=== PATIENT | female | born 1945 | race Caucasian/White ===

== ENCOUNTER 2017-10-18 11:46 | Emergency (ER) | payer MEDICARE, BC ==
[2017-10-18] MEDS ORDERED: Sodium Chloride 0.9% 1,000 ML IV SCH (12:15)
[2017-10-18] MEDS ORDERED: fentaNYL 100 MCG/2 ML SDV IVPUSH ONE (12:34)
[2017-10-18] MEDS ORDERED: Ondansetron 4 MG/2 ML SDV IVPUSH ONE (12:34)
[2017-10-18] MEDS ORDERED: diphenhydrAMINE 50 MG/ML SDV IVPUSH ONE (12:44)
[2017-10-18] MEDS ORDERED: HYDROmorphone 2 MG/ML SDV IVPUSH ONE (14:24)
--- NOTE | 2017-10-18 15:30 | CT ---
INDICATION: Mid epigastric pain. Has had anaphylaxis with IV contrast. CT ABDOMEN AND PELVIS WITHOUT CONTRAST: Spiral 1.25-mm axial sections were obtained through the chest without contrast due to history of previous anaphylaxis to contrast. Sagittal and coronal reconstructions were obtained - only comparison is a CT of the chest of 03/05/2007. At this time in the lingula, seen on axial images #6 through #14, there is an area of nodular density with an air bronchogram on its inferior portion, which could represent a focal area of pneumonia, although neoplasm cannot be entirely excluded. This abnormality was not visualized as such on the previous study of 2006. No other finding to suggest an active process in the lower lungs or pleural spaces was seen. The heart did not appear enlarged. Evidence of previous gastric bypass surgery is noted. A punctate calcification in the spleen could be on the basis of histoplasmosis, with the spleen otherwise unremarkable. The tail of the pancreas is bulbous and was not included on the previous CT examination. Likely it represents a benign appearance - variant. No definite pancreatic mass was seen. Follow-up could be obtained in 3 months for confirmation of stability as felt to be clinically necessary. The gallbladder is absent, compatible with history of its removal. The liver was normal in appearance. The appendix is absent, compatible with history of its removal. The uterus is absent compatible with history of its removal. There is mild thickening of the urinary bladder wall which could be on the basis of cystitis, but should be correlated clinically. No evidence of bowel obstruction or free air was seen. A left inguinal hernia, including only fat, was noted. No retroperitoneal mass was seen. No other hernia was noted. No mass lesions, organomegaly, or free fluid collections were identified in the abdomen or pelvis. No renal calculi or obstructive uropathy was seen. IMPRESSION: 1. Nonacute CT abdomen and pelvis. 2. Thickening of the wall of the urinary bladder is suggested - correlate clinically. 3. Post cholecystectomy. 4. Post appendectomy. 5. Post hysterectomy. 6. Post gastric bypass surgery. 7. Suggestion of a tiny fixed hiatal hernia. 8. ASD. 9. Small inguinal hernia on the left, including only fat. 10. Degenerative changes and disk disease are noted at the thoracolumbar spine. Total Exam DLP = 693.86 mGy-cm. Report was given by phone to Dr. Cooper at 1406 hours, 10/18/2017 MTDD
--- NOTE | 2017-10-19 13:31 | ER ---
DATE SEEN: 10/18/2017 HISTORY OF PRESENT ILLNESS: This 72-year-old woman presents with abdominal pain that radiates to her back. Took antacids today. No nausea, vomiting, or fever. PAST SURGICAL HISTORY: Left inguinal herniorrhaphy, gastric bypass, cholecystectomy, appendectomy, and hernia repair. The patient has severe pain. The patient is attended by her . REVIEW OF SYSTEMS: Noncontributory, other than above. No symptoms. No musculoskeletal symptoms. No history of fibromyalgia. The patient denies vomiting. She says she had a spell like this once before and severe pain. She got a shot and the pain went away. Apparently, she was seen either in [place] or a [facility] at that time. ALLERGIES: She has significant allergies to codeine and has anaphylaxis with iodinated CT contrast. PHYSICAL EXAMINATION: GENERAL: She is well dressed. She is not overweight (she apparently lost 50 pounds due to the gastric bypass). NECK: No thyromegaly or mass in the neck. HEENT: PERRLA intact. Pharynx, appropriate hydration. LUNGS: Clear without rales, rhonchi, or wheezes. HEART: S1, S2. No murmur. ABDOMEN: Soft with moderate guarding, midepigastrium, more in the right upper quadrant. Bowel sounds are present. No distention. Abdomen is otherwise soft. No heel tap, rebound. PELVIC: Not performed. LOWER EXTREMITIES: Without abnormality. No linear abnormalities. WORKING DIAGNOSIS: Abdominal pain, etiology indeterminate, with a previous gastric bypass, warrants CAT scan. CAT scan was performed without using contrast as she has anaphylaxis with this. The CAT scan demonstrated thickening in the bladder. No obstruction. Previous gastric bypass noted and no thickening in the bowel. No sign of pancreatitis. LABORATORY FINDINGS: Lactic acid is normal. Complete metabolic panel is normal with the exception of BUN slightly elevated at 20, mildly; creatinine 0.9, BUN creatinine ratio 22, suggesting mild dehydration. Total bilirubin 0.4, but AST with trifle elevation 28, not significant. Troponin less than 0.017. Urinalysis, normal with rare bacteria. Specific gravity 1.005. The latter urine was collected after the patient was flushed with a liter of fluid. ASSESSMENT: 1. Abdominal pain, etiology indeterminate. 2. Perhaps abdominal gastro-colonic spasm. The point of spasm is indeterminate. 3. No evidence for mesenteric ischemia. 4. Lactic acid is normal. 5. No neutrophilic leukocytosis. No suggestion of any disaster is present on the clinical examination or on the basis of laboratory exam. PLAN: The patient was given a dose of fentanyl. This did not seem to manage her pain. Currently, a small dose of Dilaudid was given as there was a concern about potential anaphylaxis that she had not only with codeine, but with the iodinated dye. She did not have any complications. Her pain relented to about 3 to 5/10 in intensity. She was grateful for this. She was able to go home. She is to return to doctor as needed in the next 24 to 72 hours if markedly worse. She felt her spasm or discomfort had relented. Again, the etiology for her abdominal pain is indeterminate. Not felt to have an unusual hernia that involves the omentum as the CAT scan did not demonstrate that or unusual hernia mediated by the transition or suspension of the remaining stomach bowel contents. /[id number] WENDY/MARTIL
== END 2017-10-18 15:51 | disposition home or self-care (01) ==
LOC: FB.ED 11:46
DX: R10.9 Unspecified abdominal pain (principal); Z88.5 Allergy status to narcotic agent
CPT/HCPCS: 36415; 74176; 80053; 81001; 83605; 83615; 84484; 85025; 93005; 96361; 96374; 96375; 99284; J1170; J1200; J2405; J3010; J7040

== ENCOUNTER 2017-10-20 15:22 | Inpatient (IN) | payer MEDICARE, BC ==
--- NOTE | 2017-10-20 15:40 | EDM.PDOC ---
ED HPI GENERAL MEDICAL PROBLEM - General Stated Complaint: STOMACH PAIN Time Seen by Provider: 10/20/17 18:10 Source of Information: Reports: Patient, Family History Limitations: Reports: No Limitations - History of Present Illness INITIAL COMMENTS - FREE TEXT/NARRATIVE: 72 y.o.w.f s/p gastric bypass, Total Hysterectomy, appendectomy, Cholecystectomy , came to the ED due to gen abd. pain, more so at her suprapubic area with blood in her urine. . Pt was seen for same on 10/18/2017. At that time, the CT abd, was neg. CBC and BMP were neg. the was no blood in her urine at that time. No blood in stool, no Trauma, no N/V/D or any other acute medical issues. BP 126 /73 pulse 80 RR 18 Pulse ox 100% on RA. Temp 36.7 Onset Date: 10/18/17 Onset Time: 07:00 Duration: Day(s):, Getting Worse, Intermittent Location: Reports: Abdomen Quality: Reports: Ache, Burning, Dull, Same as Previous Episode Severity: Moderate Improves with: Reports: Medication, Rest Worsens with: Reports: Movement Associated Symptoms: Reports: No Other Symptoms Lower Abdominal Pain Score (Numeric/FACES): 10 - Related Data Allergies Allergy/AdvReac Type Severity Reaction Status Date / Time codeine Allergy Vomiting Verified 10/20/17 15:42 Iodinated Contrast- Oral and Allergy Shortness Verified 10/20/17 15:42 IV Dye of Breath Home Meds: Home Meds FLUoxetine [PROzac] 40 mg PO BEDTIME 10/18/17 [History] Famotidine [Pepcid] 20 mg PO BEDTIME #40 tab 10/18/17 [Rx] Metoprolol Succinate [Toprol XL] 12.5 mg PO BEDTIME 10/18/17 [History] Simvastatin [Zocor] 20 mg PO BEDTIME 10/18/17 [History] metFORMIN [Glucophage] 500 mg PO WITHBREAKFAST 10/18/17 [History] Acetaminophen [Tylenol Extra Strength] 500 mg PO BID PRN 10/21/17 [History] Acetaminophen/Diphenhydramine [Tylenol Pm Ex-Strength Caplet] 1 tab PO BEDTIME PRN 10/21/17 [History] Aspirin [Ecotrin] 81 mg PO BEDTIME 10/21/17 [History] Hydrocodone/Acetaminophen [Hydrocodon-Acetaminophen 5-325] 1 each PO Q4H PRN [History] Past Medical History Cardiovascular History: Reports: Bypass, High Cholesterol, Hypertension, Stents 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: Endocrine/Metabolic History: Reports: Diabetes, Type II - Past Surgical History GI Surgical History: Reports: Appendectomy, Cholecystectomy Female Surgical History: Reports: Section, Hysterectomy Other Female Surgeries/Procedures: gastric bypass Social & Family History - Family History Family Medical History: Unobtainable - Tobacco Use Smoking Status *Q: Never Smoker - Caffeine Use Caffeine Use: Reports: Coffee, Soda, Tea - Recreational Drug Use Recreational Drug Use: No ED ROS GENERAL - Review of Systems Review Of Systems: See Below Constitutional: Reports: No Symptoms HEENT: Reports: No Symptoms Respiratory: Reports: No Symptoms Cardiovascular: Reports: No Symptoms Endocrine: Reports: No Symptoms GI/Abdominal: Reports: Abdominal Pain : Reports: Hematuria Musculoskeletal: Reports: No Symptoms Skin: Reports: No Symptoms Neurological: Reports: No Symptoms Psychiatric: Reports: No Symptoms Hematologic/Lymphatic: Reports: No Symptoms Immunologic: Reports: No Symptoms ED EXAM, GI/ABD - Physical Exam Exam: See Below Exam Limited By: No Limitations General Appearance: Alert, WD/WN, Moderate Distress Eyes: Bilateral: Normal Appearance Ears: Normal External Exam, Normal Canal Nose: Normal Inspection Throat/Mouth: Normal Inspection, Normal Lips Head: Atraumatic, Normocephalic Neck: Normal Inspection, Supple, Non-Tender, Full Range of Motion Respiratory/Chest: No Respiratory Distress, Lungs Clear, Normal Breath Sounds, Chest Non-Tender Cardiovascular: Normal Peripheral Pulses, Regular Rate, Rhythm, No Edema, No Gallop GI/Abdominal Exam: Normal Bowel Sounds, Tender (suprapubic) (Female) Exam: Deferred Rectal (Female) Exam: Deferred Back Exam: Normal Inspection, Full Range of Motion Extremities: Normal Inspection, Normal Range of Motion, Non-Tender, No Pedal Edema Neurological: Alert, Oriented, CN II-XII Intact, Normal Cognition, Normal Gait, No Motor/Sensory Deficits Psychiatric: Normal Affect, Normal Mood Skin Exam: Warm, Dry, Intact, Normal Color, No Rash Lymphatic: No Adenopathy Course - Vital Signs Text/Narrative:: 72 y.o.w.f s/p gastric bypass, Total Hysterectomy, appendectomy, Cholecystectomy , came to the ED due to gen abd. pain, more so at her suprapubic area with blood in her urine. . Pt was seen for same on 10/18/2017. At that time, the CT abd, was neg. CBC and BMP were neg. the was no blood in her urine at that time. No blood in stool, no Trauma, no N/V/D or any other acute medical issues. BP 126 /73 pulse 80 RR 18 Pulse ox 100% on RA. Temp 36.7 PE: WNWD W F with abd. pain and bloody urine labs: CBC and BMP neg UA pos for hematuria Imaging: CT abd. done on 10/18/2017: Thickening of the urinary bladder wall. No renal calculy or obstructive uropathy as per RAD Impression: Gross Hematuria, Abd. pain Tx: Levoquine, Toradol, Bladder irrigation, Oxybutynin for bladder spasm 6.08 pm Consultation: , Urologist, [facility]: Abx for a possible Bladder infection, admit for cont bladder irrigation, follow up in the urology clinic clinic with Dr. Hilliard, tel: [phone] for a cystoscopy. Plan: Admit to med/surge obs to Hospitalist. Last Recorded V/S: Last Vital Signs Temp 36.5 C 10/22/17 00:00 Pulse 48 L 10/22/17 00:00 Resp 16 10/22/17 00:00 BP 134/60 10/22/17 00:00 Pulse Ox 98 10/22/17 00:00 - Orders/Labs/Meds Orders: Active Orders 24 hr Category Date Time Status DC Arcos Catheter [Urinary Catheter Removal] [RC] Per Care 10/22/17 06:00 Active Unit Routine CULTURE URINE [RM] Routine Lab 10/21/17 11:38 Received FLUoxetine [PROzac] Med 10/21/17 21:00 Active 40 mg PO BEDTIME Metoprolol Succinate [Toprol XL] Med 10/21/17 21:00 Active 12.5 mg PO BEDTIME metFORMIN [Glucophage] Med 10/22/17 08:00 Active 500 mg PO WITHBREAKFAST Medication Orders Fluoxetine HCl (Prozac) 40 mg PO BEDTIME [facility] Last Admin: 10/21/17 22:05 Dose: 40 mg Levofloxacin/Dextrose 500 mg/ (Premix) 100 mls @ 100 mls/hr IV Q24H OFELIA Last Admin: 10/21/17 19:05 Dose: 100 mls/hr Infusion: 10/20/17 22:20 Dose: 100 mls/hr Admin: 10/20/17 21:20 Dose: 100 mls/hr Metformin HCl (Glucophage) 500 mg PO WITHBREAKFAST OFELIA Metoprolol Succinate (Toprol Xl) 12.5 mg PO BEDTIME [facility] Last Admin: 10/21/17 22:05 Dose: 12.5 mg Sodium Chloride (Saline Flush) 10 ml FLUSH ASDIRECTED PRN PRN Reason: Keep Vein Open Last Admin: 10/21/17 20:08 Dose: 10 ml Admin: 10/20/17 16:58 Dose: 10 ml Admin: 10/20/17 16:57 Dose: 10 ml Admin: 10/20/17 16:32 Dose: 10 ml Labs: Laboratory Tests 10/20/17 10/20/17 10/20/17 Range/Units 15:45 16:10 16:10 WBC 8.0 (4.5-12.0) X10-3/uL RBC 3.99 (3.23-5.20) x10(6)uL Hgb 12.1 (11.5-15.5) g/dL Hct 36.6 (30.0-51.3) % MCV 91.7 (80-96) fL MCH 30.3 (27.7-33.6) pg MCHC 33.0 (32.2-35.4) g/dL RDW 13.2 (11.5-15.5) % Plt Count 258 (125-369) X10(3)uL MPV 8.2 (7.4-10.4) fL Neut % (Auto) 59.1 (46-82) % Lymph % (Auto) 30.1 (13-37) % [place] % (Auto) 7.0 (4-12) % Eos % (Auto) 3 (1.0-5.0) % Baso % (Auto) 1 (0-2) % Neut # (Auto) 4.7 (1.6-8.3) # Lymph # (Auto) 2.4 (0.6-5.0) # [place] # (Auto) 0.6 (0.0-1.3) # Eos # (Auto) 0.2 (0.0-0.8) # Baso # (Auto) 0.1 (0.0-0.2) # PT 9.9 (8.7-11.1) INR 0.98 (0.89-1.13) Sodium (135-145) mmol/L Potassium (3.5-5.3) mmol/L Chloride (100-110) mmol/L Carbon Dioxide (21-32) mmol/L BUN (7-18) mg/dL Creatinine (0.55-1.02) mg/dL Est Cr Clr Drug Dosing mL/min Estimated GFR (MDRD) (>60) BUN/Creatinine Ratio (9-20) Glucose (80-116) mg/dL Calcium (8.6-10.2) mg/dL Urine Color Red (YELLOW) Urine Appearance Turbid (CLEAR) Urine pH 6.5 (5.0-6.5) Ur Specific [place] 1.015 (1.010-1.025) Urine Protein 30 H (NEGATIVE) mg/dL Urine Glucose (UA) Normal (NEGATIVE) mg/dL Urine Ketones Negative (NEGATIVE) mg/dL Urine Occult Blood Large H (NEGATIVE) Urine Nitrite Negative (NEGATIVE) Urine Bilirubin Negative (NEGATIVE) Urine Urobilinogen Normal (NEGATIVE) mg/dL Ur Leukocyte Esterase Negative (NEGATIVE) Urine RBC Packed H (0) //18 Range/Units 16:10 WBC (4.5-12.0) X10-3/uL RBC (3.23-5.20) x10(6)uL Hgb (11.5-15.5) g/dL Hct (30.0-51.3) % MCV (80-96) fL MCH (27.7-33.6) pg MCHC (32.2-35.4) g/dL RDW (11.5-15.5) % Plt Count (125-369) X10(3)uL MPV (7.4-10.4) fL Neut % (Auto) (46-82) % Lymph % (Auto) (13-37) % [place] % (Auto) (4-12) % Eos % (Auto) (1.0-5.0) % Baso % (Auto) (0-2) % Neut # (Auto) (1.6-8.3) # Lymph # (Auto) (0.6-5.0) # [place] # (Auto) (0.0-1.3) # Eos # (Auto) (0.0-0.8) # Baso # (Auto) (0.0-0.2) # PT (8.7-11.1) INR (0.89-1.13) Sodium 139 (135-145) mmol/L Potassium 4.0 (3.5-5.3) mmol/L Chloride 104 (100-110) mmol/L Carbon Dioxide 25 (21-32) mmol/L BUN 20 H (7-18) mg/dL Creatinine 0.9 (0.55-1.02) mg/dL Est Cr Clr Drug Dosing 40.58 mL/min Estimated GFR (MDRD) > 60 (>60) BUN/Creatinine Ratio 22.2 H (9-20) Glucose 107 (80-116) mg/dL Calcium 8.8 (8.6-10.2) mg/dL Urine Color (YELLOW) Urine Appearance (CLEAR) Urine pH (5.0-6.5) Ur Specific [place] (1.010-1.025) Urine Protein (NEGATIVE) mg/dL Urine Glucose (UA) (NEGATIVE) mg/dL Urine Ketones (NEGATIVE) mg/dL Urine Occult Blood (NEGATIVE) Urine Nitrite (NEGATIVE) Urine Bilirubin (NEGATIVE) Urine Urobilinogen (NEGATIVE) mg/dL Ur Leukocyte Esterase (NEGATIVE) Urine RBC (0) Meds: Medications Generic Name Dose Route Start Last Admin Trade Name Benitoq PRN Reason Stop Dose Admin Fluoxetine HCl 40 mg 10/21/17 21:00 10/21/17 22:05 Prozac PO 40 mg BEDTIME OFELIA Administration Levofloxacin/Dextrose 500 mg/ 100 mls @ 100 mls/hr 10/20/17 18:30 10/21/17 19 :05 Premix IV 100 mls/hr Q24H OFELIA Administration Metformin HCl 500 mg 10/22/17 08:00 Glucophage PO WITHBREAKFAST OFELIA Metoprolol Succinate 12.5 mg 10/21/17 21:00 10/21/17 22:05 Toprol Xl PO 12.5 mg BEDTIME OFELIA Administration Sodium Chloride 10 ml 10/20/17 16:31 04/23/18 20:08 Saline Flush FLUSH 10 ml ASDIRECTED PRN Administration Keep Vein Open Discontinued Medications Generic Name Dose Route Start Last Admin Trade Name Shefali PRN Reason Stop Dose Admin Diphenhydramine HCl 50 mg 10/21/17 00:21 10/21/17 00:58 Benadryl PO 10/21/17 00:22 50 mg ONETIME ONE Administration Levofloxacin/Dextrose Confirm 10/20/17 21:07 10/20/17 22:14 Levaquin In D5w 500 Mg/100 Ml Administered 10/20/17 21:08 Not Given Dose 100 mls @ as directed IV .STK-MED ONE Ketorolac Tromethamine 30 mg 10/20/17 16:14 10/20/17 16:37 Toradol IVPUSH 10/20/17 16:15 30 mg ONETIME ONE Administration Ketorolac Tromethamine 30 mg 10/20/17 21:13 10/20/17 21:37 Toradol IVPUSH 10/20/17 21:14 30 mg ONETIME ONE Administration Ondansetron HCl 8 mg 10/20/17 15:53 10/20/17 16:51 Zofran IVPUSH 10/20/17 15:54 8 mg ONETIME ONE Administration Oxybutynin Chloride 5 mg 10/20/17 21:19 10/20/17 21:37 Oxybutynin Er PO 10/20/17 21:20 5 mg ONETIME ONE Administration Pantoprazole Sodium 40 mg 10/20/17 15:53 10/20/17 16:45 Protonix Iv IVPUSH 10/20/17 15:54 40 mg ONETIME ONE Administration Departure - Departure Time of Disposition: 18:00 Disposition: Refer to Observation Condition: Fair Clinical Impression: UTI (urinary tract infection) Qualifiers: Urinary tract infection type: acute cystitis - Discharge Information
[2017-10-20] MEDS ORDERED: Pantoprazole 40 MG Vial IVPUSH ONE (15:53)
[2017-10-20] MEDS ORDERED: Ondansetron 4 MG/2 ML SDV IVPUSH ONE (15:53)
[2017-10-20] MEDS ORDERED: Ketorolac 30 MG/ML SDV IVPUSH ONE ×2 (16:14→21:13)
[2017-10-20] MEDS: Sodium Chloride 0.9% 10 ML Syringe FLUSH PRN ×3 (16:32→16:58)
[2017-10-20] MEDS ORDERED: Levofloxacin/Dextrose 5%-Water 100 ML IV ONE (21:07)
[2017-10-20] MEDS ORDERED: Oxybutynin 5 MG Tab.ER PO ONE (21:19)
[2017-10-20] MEDS: Levofloxacin/Dextrose 5%-Water 500 MG in Premix Bag 1 BAG IV SCH (21:20)
[2017-10-21] MEDS ORDERED: diphenhydrAMINE 50 MG Cap PO ONE (00:21)
--- NOTE | 2017-10-21 12:12 | PCM.HP ---
H&P History of Present Illness - General Date of Service: 10/21/17 Admit Problem/Dx: Admission Diagnosis/Problem Admission Diagnosis/Problem Gross hematuria Source of Information: Patient, Family, Old Records, Provider History Limitations: Reports: No Limitations - History of Present Illness Initial Comments - Free Text/Narative: Patient is a 72-year-old female who is otherwise in good health until Saturday the when she developed epigastric abdominal pain radiating to the back around both sides and presented to the emergency department. The pain was fairly severe. She had an extensive workup including blood work, abdominal CT, and negative UA. She was placed on Pepcid and hydrocodone and discharged home. She had no other systemic symptoms. No fevers, no chills, no nausea, no vomiting, no diarrhea. She had no blood in her urine. No blood in her stool. No other symptoms of illness. The pain was a sharp achiness in the epigastrium which radiated around the sides of the abdomen to the back. The pain pills helped a little but did not last and she was concerned about their safety so she quit taking them. She felt better on Saturday but by Saturday, yesterday, she started to have spasms and the pain moved into the lower abdomen and continued to radiate into the back. She was more crampy in the pain although no bowel or bladder changes other than a little bit more frequency. In the afternoon she started to urinate. Blood and so presented to the emergency department for further evaluation. At that time she was found to have gross hematuria with an otherwise negative urine and so was advised to be admitted for further treatment and evaluation. The patient has had one other episode similar to this back in 2017 when she and her were in [place]. She had the exact same symptoms without the gross hematuria, presented to the emergency room in [place], had a significant workup including CT imaging which was negative. The pain subsided within a few hours and she never had any recurrence until now. She's otherwise been feeling well except for she's noticed over the past couple of months that when she eats she has early satiety compared to previous and she also has some epigastric pain when she is finished with her meal. It has been mild and fairly short-lived so she hasn't investigated it further. She did not follow up with her gastric bypass annual visit for almost 2 years. Prior to that was seen annually. Past medical history: #1Status post Abundio-en-Y gastric bypass in 2011 #2 hypertension #3 hyperlipidemia #4 coronary artery disease -patient denies history of MS. She apparently had a stent placed 2006 or so and then had bypass surgery in 2008. Patient states one vessel but chart shows 3 vessels. #5 metabolic syndrome #6 generalized anxiety disorder #7 past surgeries of gastric bypass, sections 2, hysterectomy 1992, appendectomy 1965, coronary artery bypass grafting 2008, tonsillectomy and tubal ligation. 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 She is and lives with her in [place]. No illegal drug use. She has 4 grown children all sons. Family history: The patient's mother of breast cancer at 57. The patient's father of brain tumor at 71. The patient has a twin sister with recently diagnosed stage I breast cancer, another sister who is healthy, and a brother who has coronary disease and diabetes type 2. She has another brother who from a car accident and another sibling who at the age of 4 from aplastic anemia, also a brother. Lower Abdominal Pain Score (Numeric/FACES): 10 - Related Data Allergies/Adverse Reactions: Allergies Allergy/AdvReac Type Severity Reaction Status Date / Time codeine Allergy Vomiting Verified 10/20/17 15:42 Iodinated Contrast- Oral and Allergy Shortness Verified 10/20/17 15:42 IV Dye of Breath Home Medications: Home Meds FLUoxetine [PROzac] 40 mg PO BEDTIME 10/18/17 [History] Famotidine [Pepcid] 20 mg PO BEDTIME #40 tab 10/18/17 [Rx] Metoprolol Succinate [Toprol XL] 12.5 mg PO BEDTIME 10/18/17 [History] Simvastatin [Zocor] 20 mg PO BEDTIME 10/18/17 [History] metFORMIN [Glucophage] 500 mg PO WITHBREAKFAST 10/18/17 [History] Acetaminophen [Tylenol Extra Strength] 500 mg PO BID PRN 10/21/17 [History] Acetaminophen/Diphenhydramine [Tylenol Pm Ex-Strength Caplet] 1 tab PO BEDTIME PRN 10/21/17 [History] Aspirin [Ecotrin] 81 mg PO BEDTIME 10/21/17 [History] Hydrocodone/Acetaminophen [Hydrocodon-Acetaminophen 5-325] 1 each PO Q4H PRN [History] Past Medical History Cardiovascular History: Reports: Bypass, High Cholesterol, Hypertension, Stents [employer] History: Reports: Psychiatric History: Reports: Depression Endocrine/Metabolic History: Reports: Diabetes, Type II - Infectious Disease History Infectious Disease History: Reports: Chicken Pox - Past Surgical History GI Surgical History: Reports: Appendectomy, Cholecystectomy Female Surgical History: Reports: Section, Hysterectomy Other Female Surgeries/Procedures: gastric bypass Social & Family History - Family History Family Medical History: Unobtainable - Tobacco Use Smoking Status *Q: Never Smoker Second Hand Smoke Exposure: No - Caffeine Use Caffeine Use: Reports: Coffee, Soda, Tea - Recreational Drug Use Recreational Drug Use: No H&P Review of Systems - Review of Systems: Review Of Systems: See Below General: Reports: No Symptoms HEENT: Reports: No Symptoms Pulmonary: Reports: No Symptoms Cardiovascular: Reports: No Symptoms Gastrointestinal: Reports: Abdominal Pain Genitourinary: Reports: Frequency, Hematuria Musculoskeletal: Reports: No Symptoms Skin: Reports: No Symptoms Psychiatric: Reports: No Symptoms Neurological: Reports: No Symptoms Hematologic/Lymphatic: Reports: Easy Bleeding (secondary to aspirin.) Exam - Exam Exam: See Below - Vital Signs Vital Signs: Last Vital Signs Temp 35.9 C 10/21/17 08:00 Pulse 42 L 10/21/17 08:00 Resp 20 10/21/17 08:00 BP 124/58 L 10/21/17 08:00 Pulse Ox 98 10/21/17 08:00 Weight: 65.227 kg - Exam General: Alert, Oriented, Cooperative HEENT: PERRLA, Mucosa Moist & [place], Posterior Pharynx Clear Neck: Supple Lungs: Clear to Auscultation, Normal Respiratory Effort Cardiovascular: Regular Rate, Regular Rhythm, Bradycardia GI/Abdominal Exam: Normal Bowel Sounds, Soft, Tender (in the epigastrium and left lower quadrant. No rebound, masses, rigidity or guarding. ) Back Exam: Normal Inspection Extremities: Normal Inspection, No Pedal Edema Neuro Extensive - Mental Status: Alert, Oriented x3 Psychiatric: Alert - Patient Data Lab Results Last 24 hrs: Laboratory Results - last 24 hr 10/20/17 10/20/17 10/20/17 Range/Units 15:45 16:10 16:10 WBC 8.0 (4.5-12.0) X10-3/uL RBC 3.99 (3.23-5.20) x10(6)uL Hgb 12.1 (11.5-15.5) g/dL Hct 36.6 (30.0-51.3) % MCV 91.7 (80-96) fL MCH 30.3 (27.7-33.6) pg MCHC 33.0 (32.2-35.4) g/dL RDW 13.2 (11.5-15.5) % Plt Count 258 (125-369) X10(3)uL MPV 8.2 (7.4-10.4) fL Neut % (Auto) 59.1 (46-82) % Lymph % (Auto) 30.1 (13-37) % [place] % (Auto) 7.0 (4-12) % Eos % (Auto) 3 (1.0-5.0) % Baso % (Auto) 1 (0-2) % Neut # (Auto) 4.7 (1.6-8.3) # Lymph # (Auto) 2.4 (0.6-5.0) # Addison # (Auto) 0.6 (0.0-1.3) # Eos # (Auto) 0.2 (0.0-0.8) # Baso # (Auto) 0.1 (0.0-0.2) # PT 9.9 (8.7-11.1) INR 0.98 (0.89-1.13) Sodium (135-145) mmol/L Potassium (3.5-5.3) mmol/L Chloride (100-110) mmol/L Carbon Dioxide (21-32) mmol/L BUN (7-18) mg/dL Creatinine (0.55-1.02) mg/dL Est Cr Clr Drug Dosing mL/min Estimated GFR (MDRD) (>60) BUN/Creatinine Ratio (9-20) Glucose (80-116) mg/dL Calcium (8.6-10.2) mg/dL Urine Color Red (YELLOW) Urine Appearance Turbid (CLEAR) Urine pH 6.5 (5.0-6.5) Ur Specific [place] 1.015 (1.010-1.025) Urine Protein 30 H (NEGATIVE) mg/dL Urine Glucose (UA) Normal (NEGATIVE) mg/dL Urine Ketones Negative (NEGATIVE) mg/dL Urine Occult Blood Large H (NEGATIVE) Urine Nitrite Negative (NEGATIVE) Urine Bilirubin Negative (NEGATIVE) Urine Urobilinogen Normal (NEGATIVE) mg/dL Ur Leukocyte Esterase Negative (NEGATIVE) Urine RBC Packed H (0) 10/20/ Range/Units 16:10 WBC (4.5-12.0) X10-3/uL RBC (3.23-5.20) x10(6)uL Hgb (11.5-15.5) g/dL Hct (30.0-51.3) % MCV (80-96) fL MCH (27.7-33.6) pg MCHC (32.2-35.4) g/dL RDW (11.5-15.5) % Plt Count (125-369) X10(3)uL MPV (7.4-10.4) fL Neut % (Auto) (46-82) % Lymph % (Auto) (13-37) % [place]ison % (Auto) (4-12) % Eos % (Auto) (1.0-5.0) % Baso % (Auto) (0-2) % Neut # (Auto) (1.6-8.3) # Lymph # (Auto) (0.6-5.0) # Addison # (Auto) (0.0-1.3) # Eos # (Auto) (0.0-0.8) # Baso # (Auto) (0.0-0.2) # PT (8.7-11.1) INR (0.89-1.13) Sodium 139 (135-145) mmol/L Potassium 4.0 (3.5-5.3) mmol/L Chloride 104 (100-110) mmol/L Carbon Dioxide 25 (21-32) mmol/L BUN 20 H (7-18) mg/dL Creatinine 0.9 (0.55-1.02) mg/dL Est Cr Clr Drug Dosing 40.58 mL/min Estimated GFR (MDRD) > 60 (>60) BUN/Creatinine Ratio 22.2 H (9-20) Glucose 107 (80-116) mg/dL Calcium 8.8 (8.6-10.2) mg/dL Urine Color (YELLOW) Urine Appearance (CLEAR) Urine pH (5.0-6.5) Ur Specific [place] (1.010-1.025) Urine Protein (NEGATIVE) mg/dL Urine Glucose (UA) (NEGATIVE) mg/dL Urine Ketones (NEGATIVE) mg/dL Urine Occult Blood (NEGATIVE) Urine Nitrite (NEGATIVE) Urine Bilirubin (NEGATIVE) Urine Urobilinogen (NEGATIVE) mg/dL Ur Leukocyte Esterase (NEGATIVE) Urine RBC (0) Result Diagrams: 10/20/17 16:10 10/20/17 16:10 - Problem List (1) Gross hematuria SNOMED Code(s): 721101303 ICD Code: R31.0 - GROSS HEMATURIA Status: Acute Current Visit: Yes Problem Details: Improved. D/C continuous bladder irrigation and keep garcia to see if blood is really cleared or just diluted. If no further bleeding can d/c garcia in am. Source of bleeding unclear. Negative CT but done without contrast due to allergy. Renal US ordered and we can evaluate for a renal source. U Cx ordered, possible infection although unlikely. Will need to follow up with urology for direct visualization and possible CT urogram as outpatient. Continue antibiotic therapy, but may de-escalate tomorrow based on initial UC results. (2) CAD S/P percutaneous coronary angioplasty SNOMED Code(s): 644346397 ICD Code: I25.10 - ATHSCL HEART DISEASE OF [place] CORONARY ARTERY W/O ANG PCTRS; Z98.61 - CORONARY ANGIOPLASTY STATUS Status: Acute Current Visit: Yes Problem Details: Stable, monitor. Continue home meds except ASA. (3) Generalized anxiety disorder SNOMED Code(s): 47685887 ICD Code: F41.1 - GENERALIZED ANXIETY DISORDER Status: Acute Current Visit: Yes Problem Details: Controlled. Continue outpatient meds. (4) H/O gastric bypass SNOMED Code(s): 267927858 ICD Code: Z98.84 - BARIATRIC SURGERY STATUS Status: Acute Current Visit: Yes Problem Details: Could be source of pain but not hematuria. Recommended outpatient follow up with gastric bypass surgery. (5) Hyperlipidemia SNOMED Code(s): 24303087 ICD Code: E78.5 - HYPERLIPIDEMIA, UNSPECIFIED Status: Acute Current Visit : Yes Problem Details: Statin therapy. (6) Hypertension SNOMED Code(s): 18984923 ICD Code: I10 - ESSENTIAL (PRIMARY) HYPERTENSION Status: Acute Current Visit: Yes Problem Details: Continue outpatient meds. (7) Metabolic syndrome SNOMED Code(s): 000782717 ICD Code: E88.81 - METABOLIC SYNDROME Status: Acute Current Visit: Yes Problem Details: Continue metformin. (8) DVT prophylaxis SNOMED Code(s): 843419975, 522768415 ICD Code: JRH0273 - Status: Acute Current Visit: Yes Problem Details: SCDs. Hold anticoagulants due to bleeding. Problem List Initiated/Reviewed/Updated: Yes Orders Last 24hrs: Active Orders 24 hr Category Date Time Status Patient Status Manage Transfer [TRANSFER] Routine ADT 10/21/17 11:43 Ordered Patient Status [ADT] Routine ADT 10/20/17 18:31 Active DC Garcia Catheter [Urinary Catheter Removal] [RC] Per Care 10/22/17 06:00 Active Unit Routine Insert Garcia Catheter [Insert Urinary Catheter] [OM.PC] Care 10/20/17 18:30 Ordered Q24H Oxygen Therapy [RC] PRN Care 10/20/17 18:31 Active Up With Assistance [RC] 09,13,17,21 Care 10/20/17 18:31 Active Urinary Catheter Assessment [RC] 08,16,00 Care 10/20/17 18:31 Active Vital Signs [RC] 04,08,12,16,20,00 Care 10/20/17 18:31 Active Renal Comp [US] Routine Exams 10/21/17 11:43 Ordered CULTURE URINE [RM] Routine Lab 10/21/17 11:38 Ordered UA W/MICROSCOPIC [URIN] Stat Lab 10/20/17 15:45 Ordered FLUoxetine [PROzac] Med 10/21/17 21:00 Ordered 40 mg PO BEDTIME Levofloxacin/Dextrose 5%-Water [Levaquin in D5W 500 MG/ Med 10/20/17 18:30 Active 100 ML] 500 mg Premix Bag 1 bag IV Q24H Metoprolol Succinate [Toprol XL] Med 10/21/17 21:00 Ordered 12.5 mg PO BEDTIME Sodium Chloride 0.9% [Saline Flush] Med 10/20/17 16:31 Active 10 ml FLUSH ASDIRECTED PRN metFORMIN [Glucophage] Med 10/22/17 08:00 Ordered 500 mg PO WITHBREAKFAST Saline Lock Insert [OM.PC] Routine Oth 10/20/17 16:31 Ordered Resuscitation Status Routine Resus Stat 10/20/17 18:31 Ordered Medication Orders Fluoxetine HCl (Prozac) 40 mg PO BEDTIME OF[facility] Levofloxacin/Dextrose 500 mg/ (Premix) 100 mls @ 100 mls/hr IV Q24H [facility] Last Admin: 10/20/17 21:20 Dose: 100 mls/hr Metformin HCl (Glucophage) 500 mg PO WITHBREAKFAST OF[facility]IA Metoprolol Succinate (Toprol Xl) 12.5 mg PO BEDTIME OFELIA Sodium Chloride (Saline Flush) 10 ml FLUSH ASDIRECTED PRN PRN Reason: Keep Vein Open Last Admin: 10/20/17 16:58 Dose: 10 ml Admin: 10/20/17 16:57 Dose: 10 ml Admin: 10/20/17 16:32 Dose: 10 ml Assessment/Plan Comment:: Discussed CODE STATUS with the patient and her . She is "not ready to " and if she were to get so sick that she were to she would want full resuscitation including chest compressions, electric shocks, intubation. Thus patient is a full code.
[2017-10-21] MEDS: Levofloxacin/Dextrose 5%-Water 500 MG in Premix Bag 1 BAG IV SCH (19:05)
[2017-10-21] MEDS: Sodium Chloride 0.9% 10 ML Syringe FLUSH PRN (20:08)
[2017-10-21] MEDS ORDERED: Metoprolol Succinate 25 MG Tab.ER PO SCH (21:00)
[2017-10-21] MEDS ORDERED: FLUoxetine 20 MG Cap PO SCH (21:00)
[2017-10-22] MEDS ORDERED: metFORMIN 500 MG Tab PO SCH (08:00)
--- NOTE | 2017-10-22 09:00 | CR ---
INDICATION: Gross hematuria. RENAL ULTRASOUND COMPLETE: Multiple ultrasonic images revealed the right kidney to measure 11.4 x 5.1 x 4.7 cm. Left kidney measured 11.2 x 5.2 x 4.6 cm. A mild degree of renal cortical scarring is noted bilaterally. No mass lesions, either solid or cystic were identified. No evidence of hydronephrosis is seen at the left kidney. However, there is mild pyelocaliectasis on the right, suggesting a possible obstructive uropathy on the right - correlate clinically. No renal calculi were seen. Detail is somewhat limited with patient's body habitus and intestinal gas. Arcos catheter was noted in the urinary bladder. The bladder wall appears to be slightly thickened, raising question of cystitis. It had a double wall appearance, suggesting edema. IMPRESSION: 1. Mild renal cortical scarring bilaterally. 2. Question of normal variant versus mild obstructive uropathy right kidney. 3. Thickening of urinary bladder wall could be on the basis of cystitis - correlate clinically. [facility]
--- NOTE | 2017-10-22 10:43 | PCM.DCSUM1 ---
Discharge Summary - Hospital Course Free Text/Narrative:: Date of admission: 10/20/17 Date of discharg 10/22/17 Admission diagnosis: Gross hematuria, rule out urinary tract infection. Discharge diagnosis: UTI with gram-negative rods, gross hematuria, now resolved. Consults: Urology by phone from the ER. Procedures: -Renal US which showed mild renal cortical cyst scarring bilaterally, question of normal variant versus mild obstructive uropathy right kidney, thickening of the urinary bladder wall possibly on the basis of cystitis. -3-way bladder catheter irrigation for hematuria. -CT scan of the abdomen and pelvis done on first ER visit on 10/18/[address] abdomen and pelvis, possible thickening of the wall of the urinary bladder, post cholecystectomy, post appendectomy, post hysterectomy, post gastric bypass surgery, suggestion of a tiny fixed hiatal hernia, AST, small inguinal hernia on the left, including only fat, degenerative changes and disc disease noted at the thoracic or lumbar spine. HPI: Patient is a 72-year-old female who is otherwise in good health until Saturday the when she developed epigastric abdominal pain radiating to the back around both sides and presented to the emergency department. The pain was fairly severe. She had an extensive workup including blood work, abdominal CT, and negative UA. She was placed on Pepcid and hydrocodone and discharged home. She had no other systemic symptoms. No fevers, no chills, no nausea, no vomiting, no diarrhea. She had no blood in her urine. No blood in her stool. No other symptoms of illness. The pain was a sharp achiness in the epigastrium which radiated around the sides of the abdomen to the back. The pain pills helped a little but did not last and she was concerned about their safety so she quit taking them. She felt better on Saturday but by Saturday, the , she started to have spasms and the pain moved into the lower abdomen and continued to radiate into the back. She was more crampy in the pain although no bowel or bladder changes other than a little bit more frequency. In the afternoon she started to urinate blood and so presented to the emergency department for further evaluation. At that time she was found to have gross hematuria with an otherwise negative urine and so was advised to be admitted for further treatment and evaluation. Hospital Course: Patient with started on continuous bladder irrigation. Within 24 hours her bleeding had stopped. Irrigation was stopped and the Arcos catheter left in place for another 12 hours with no further evidence of blood. Removed on the day of discharge and patient was able to void prior to leaving. Also on the day of discharge the patient's urine culture came back positive for gram-negative rods, no ID or sensitivities available yet. Patient was discharged home on ciprofloxacin. Discharge instructions: Discharge home today on ciprofloxacin for another 5 days 250 mg twice daily. Follow-up with your primary care provider within the next week to 10 days. Follow-up with urology within the next 2 weeks. You will need a scoping in your bladder to rule out any kind of bladder cancer. You may return to regular diet and regular activities. - Discharge Data Discharge Date: 10/22/17 Discharge Disposition: Home, Self-Care 01 Condition: Good - Discharge Diagnosis/Problem(s) (1) Gross hematuria SNOMED Code(s): 741198257 ICD Code: R31.0 - GROSS HEMATURIA Status: Acute Current Visit: Yes Problem Details: Completely resolved. Urine cx just came back positive for gram negative rods. Renal US prelim was normal. Needs to follow up with urology in the next 2 weeks for cystoscopy. Will do full 7 days of antibiotic therapy but de-escalate. Cipro 250 mg po BID for total of 7 days. (2) CAD S/P percutaneous coronary angioplasty SNOMED Code(s): 310341402 ICD Code: I25.10 - ATHSCL HEART DISEASE OF [place] CORONARY ARTERY W/O ANG PCTRS; Z98.61 - CORONARY ANGIOPLASTY STATUS Status: Acute Current Visit: Yes Problem Details: Stable, monitor. Continue home meds except ASA. (3) Generalized anxiety disorder SNOMED Code(s): 48983105 ICD Code: F41.1 - GENERALIZED ANXIETY DISORDER Status: Acute Current Visit: Yes Problem Details: Controlled. Continue outpatient meds. (4) H/O gastric bypass SNOMED Code(s): 799935482 ICD Code: Z98.84 - BARIATRIC SURGERY STATUS Status: Acute Current Visit: Yes Problem Details: Recommended outpatient follow up with gastric bypass surgery. (5) Hyperlipidemia SNOMED Code(s): 56588913 ICD Code: E78.5 - HYPERLIPIDEMIA, UNSPECIFIED Status: Acute Current Visit : Yes Problem Details: Statin therapy. (6) Hypertension SNOMED Code(s): 07916726 ICD Code: I10 - ESSENTIAL (PRIMARY) HYPERTENSION Status: Acute Current Visit: Yes Problem Details: Continue outpatient meds. (7) Metabolic syndrome SNOMED Code(s): 976924071 ICD Code: E88.81 - METABOLIC SYNDROME Status: Acute Current Visit: Yes Problem Details: Continue metformin. (8) DVT prophylaxis SNOMED Code(s): 646821561, 807626208 ICD Code: UAL2619 - Status: Acute Current Visit: Yes Problem Details: SCDs. Hold anticoagulants due to bleeding. - Discharge Plan Prescriptions/Med Rec: Ciprofloxacin HCl [Cipro] 250 mg PO BID 5 Days #10 tablet Home Medications: Home Meds FLUoxetine [PROzac] 40 mg PO BEDTIME 10/18/17 [History] Metoprolol Succinate [Toprol XL] 12.5 mg PO BEDTIME 10/18/17 [History] Simvastatin [Zocor] 20 mg PO BEDTIME 10/18/17 [History] Acetaminophen [Tylenol Extra Strength] 500 mg PO BID PRN 10/21/17 [History] Aspirin [Ecotrin] 81 mg PO BEDTIME 10/21/17 [History] Ciprofloxacin HCl [Cipro] 250 mg PO BID 5 Days #10 tablet 10/22/17 [Rx] metFORMIN [Glucophage] 1,000 mg PO WITHBREAKFAST #60 10/22/17 [Rx] Forms: ED Department Discharge Referrals: Stephie Thompson, [facility] [Primary Care Provider] - - General Info Date of Service: 10/22/17 Subjective Update: On the day of discharge, patient was feeling very well. Pain is completely resolved. She was walking in the halls. No chest pain or shortness of breath, no nausea or vomiting. No diarrhea from antibiotics. - Patient Data Vitals - Most Recent: Last Vital Signs Temp 36.5 C 10/22/17 00:00 Pulse 48 L 10/22/17 00:00 Resp 16 10/22/17 00:00 BP 134/60 10/22/17 00:00 Pulse Ox 98 10/22/17 00:00 Weight - Most Recent: 65.227 kg I&O - Last 24 hours: Intake & Output 10/21/17 10/22/17 10/22/17 22:59 06:59 14:59 Intake Total 100 Output Total 975 1600 Balance -875 -1600 EREN Results - Last 24 hrs: Microbiology 10/20/17 15:45 Urine Culture - Preliminary Urine, Clean Catch Gram Negative Rods Med Orders - Current: Current Medications Fluoxetine HCl (Prozac) 40 mg PO BEDTIME [facility] Last Admin: 10/21/17 22:05 Dose: 40 mg Levofloxacin/Dextrose 500 mg/ (Premix) 100 mls @ 100 mls/hr IV Q24H [facility] Last Admin: 10/21/17 19:05 Dose: 100 mls/hr Metformin HCl (Glucophage) 500 mg PO WITHBREAKFAST [facility] Last Admin: 10/22/17 10:14 Dose: 500 mg Metoprolol Succinate (Toprol Xl) 12.5 mg PO BEDTIME [facility] Last Admin: 10/21/17 22:05 Dose: 12.5 mg Sodium Chloride (Saline Flush) 10 ml FLUSH ASDIRECTED PRN PRN Reason: Keep Vein Open Last Admin: 10/21/17 20:08 Dose: 10 ml Discontinued Medications Diphenhydramine HCl (Benadryl) 50 mg PO ONETIME ONE Stop: 10/21/17 00:22 Last Admin: 10/21/17 00:58 Dose: 50 mg Levofloxacin/Dextrose (Levaquin In D5w 500 Mg/100 Ml) Confirm Administered Dose 100 mls @ as directed IV .STK-MED ONE Stop: 10/20/17 21:08 Last Admin: 10/20/17 22:14 Dose: Not Given Ketorolac Tromethamine (Toradol) 30 mg IVPUSH ONETIME ONE Stop: 10/20/17 16:15 Last Admin: 10/20/17 16:37 Dose: 30 mg Ketorolac Tromethamine (Toradol) 30 mg IVPUSH ONETIME ONE Stop: 10/20/17 21:14 Last Admin: 10/20/17 21:37 Dose: 30 mg Ondansetron HCl (Zofran) 8 mg IVPUSH ONETIME ONE Stop: 10/20/17 15:54 Last Admin: 10/20/17 16:51 Dose: 8 mg Oxybutynin Chloride (Oxybutynin Er) 5 mg PO ONETIME ONE Stop: 10/20/17 21:20 Last Admin: 10/20/17 21:37 Dose: 5 mg Pantoprazole Sodium (Protonix Iv) 40 mg IVPUSH ONETIME ONE Stop: 10/20/17 15:54 Last Admin: 10/20/17 16:45 Dose: 40 mg - Exam General: Reports: Alert, Oriented, Cooperative, No Acute Distress HEENT: Reports: Pupils Equal, Pupils Reactive Neck: Reports: Supple Lungs: Reports: Clear to Auscultation, Normal Respiratory Effort Cardiovascular: Reports: Regular Rate, Regular Rhythm, No Murmurs GI/Abdominal Exam: Normal Bowel Sounds, Soft, Non-Tender, No Distention Back Exam: Reports: Normal Inspection Extremities: Normal Inspection, Normal Range of Motion, No Pedal Edema Skin: Reports: Warm, Dry, Intact Psy/Mental Status: Reports: Alert, Normal Affect, Normal Mood
== END 2017-10-22 14:30 | disposition home or self-care (01) | DRG 690 ==
LOC: FB.ED 15:22 → FB.MS 18:31 → OBSVTOIN 10-21 11:43 → FB.MS 10-21 11:52
PROVIDERS: ADMIT Family Medicine; ATTEND Family Medicine
DX: N39.0 Urinary tract infection, site not specified (principal); B96.20 Unspecified Escherichia coli [E. coli] as the cause of diseases classified elsewhere; R31.0 Gross hematuria; I10 Essential (primary) hypertension; I25.10 Atherosclerotic heart disease of native coronary artery without angina pectoris; E11.9 Type 2 diabetes mellitus without complications; R10.84 Generalized abdominal pain; E88.81 Metabolic syndrome and other insulin resistance; Z98.84 Bariatric surgery status; Z98.0 Intestinal bypass and anastomosis status; E78.5 Hyperlipidemia, unspecified; F41.1 Generalized anxiety disorder; Z95.1 Presence of aortocoronary bypass graft; Z95.5 Presence of coronary angioplasty implant and graft; Z79.82 Long term (current) use of aspirin; Z79.84 Long term (current) use of oral hypoglycemic drugs; Z91.041 Radiographic dye allergy status; Z88.5 Allergy status to narcotic agent
CPT/HCPCS: 36415; 51702; 76770; 80048; 81001; 85025; 85610; 87086; 87088; 87186; 96374; 96375; 96376; 99284; A9270-GY; C9113; G0378; J1885; J1956; J2405; J7050

== ENCOUNTER 2020-10-19 11:57 | Emergency (ER) | payer MEDICARE, BC ==
[2020-10-19] MEDS ORDERED: Sodium Chloride 0.9% 10 ML Syringe FLUSH PRN (12:07)
[2020-10-19] MEDS ORDERED: Labetalol 20 MG/4 ML Syringe IVPUSH STA (12:08)
[2020-10-19] MEDS ORDERED: Ondansetron 4 MG/2 ML SDV IVPUSH STA (12:16)
[2020-10-19] MEDS ORDERED: Ondansetron 4 MG Tab.DIS PO STA (12:28)
--- NOTE | 2020-10-19 13:19 | EDM.PDOC ---
ED HPI GENERAL MEDICAL PROBLEM - General Stated Complaint: PALPiTATIONS Time Seen by Provider: 10/19/20 13:45 Source of Information: Reports: Patient History Limitations: Reports: No Limitations - History of Present Illness INITIAL COMMENTS - FREE TEXT/NARRATIVE: Patient presented to the ED because of palpitations, dizziness, nausea but no vomiting. She also c/o polyarthralgia and thinks that she has a blood clod on her left leg although she had a negative D-Dimer. There is no chest pain, dyspnea. - Related Data Allergies Allergy/AdvReac Type Severity Reaction Status Date / Time codeine Allergy Vomiting Verified 10/20/17 15:42 Iodinated Contrast Media Allergy Shortness Verified 10/20/17 15:42 [Iodinated Contrast- Oral of Breath and IV Dye] Home Meds: Home Meds FLUoxetine [PROzac] 40 mg PO BEDTIME 10/18/17 [History] Metoprolol Succinate [Toprol XL] 12.5 mg PO BEDTIME 10/18/17 [History] Simvastatin [Zocor] 20 mg PO BEDTIME 10/18/17 [History] Acetaminophen [Tylenol Extra Strength] 500 mg PO BID PRN 10/21/17 [History] Aspirin [Ecotrin EC] 81 mg PO BEDTIME 10/21/17 [History] Ciprofloxacin HCl [Cipro] 250 mg PO BID 5 Days #10 tablet 10/22/17 [Rx] metFORMIN [Glucophage] 1,000 mg PO WITHBREAKFAST #60 10/22/17 [Rx] Past Medical History Cardiovascular History: Reports: Bypass, High Cholesterol, Hypertension, Stents [employer]ER History: Reports: Psychiatric History: Reports: Depression Endocrine/Metabolic History: Reports: Diabetes, Type II - Infectious Disease History Infectious Disease History: Reports: Chicken Pox - Past Surgical History GI Surgical History: Reports: Appendectomy, Cholecystectomy Female Surgical History: Reports: Section, Hysterectomy Other Female Surgeries/Procedures: gastric bypass Social & Family History - Family History Family Medical History: Unobtainable - Caffeine Use Caffeine Use: Reports: Coffee, Soda, Tea ED ROS GENERAL - Review of Systems Review Of Systems: See Below Constitutional: Reports: No Symptoms HEENT: Reports: No Symptoms Respiratory: Reports: No Symptoms Cardiovascular: Reports: Palpitations Endocrine: Reports: No Symptoms GI/Abdominal: Reports: No Symptoms : Reports: No Symptoms Musculoskeletal: Reports: No Symptoms Skin: Reports: No Symptoms Neurological: Reports: No Symptoms ED EXAM, GENERAL - Physical Exam Exam: See Below Exam Limited By: No Limitations General Appearance: Alert, No Apparent Distress Ears: Normal External Exam, Normal Canal Nose: Normal Inspection, Normal Mucosa, No Blood Throat/Mouth: Normal Inspection Head: Atraumatic, Normocephalic Neck: Normal Inspection, Supple, Non-Tender Respiratory/Chest: No Respiratory Distress, Lungs Clear, Normal Breath Sounds, No Accessory Muscle Use, Chest Non-Tender Cardiovascular: Normal Peripheral Pulses, Regular Rate, Rhythm, No Edema GI/Abdominal: Normal Bowel Sounds, Soft, Non-Tender Back Exam: Normal Inspection, Full Range of Motion Extremities: Normal Inspection, Normal Range of Motion, Non-Tender Neurological: Alert, Oriented, CN II-XII Intact, Normal Cognition, Normal Gait, Normal Reflexes, No Motor/Sensory Deficits #1 Interpretation EKG Date: 10/19/20 Time: 12:10 Rhythm: NSR Rate (Beats/Min): 54 [place]: Normal P-Wave: Present QRS: Normal ST-T: Normal QT: Normal EKG Interpretation Comments: NSR wit PAC's. Course - Vital Signs Last Recorded V/S: Last Vital Signs Temp 36.4 C 10/19/20 13:08 Pulse 69 10/19/20 13:08 Resp 18 10/19/20 13:08 BP 179/121 H 10/19/20 13:08 Pulse Ox 100 10/19/20 13:08 - Orders/Labs/Meds Orders: Active Orders 24 hr Category Date Time Status EKG Documentation Completion [RC] ASDIRECTED Care 10/19/20 12:08 Active Chest 1V Frontal [CR] Stat Exams 10/19/20 12:07 Taken Sodium Chloride 0.9% [Saline Flush] Med 10/19/20 12:07 Active 10 ml FLUSH ASDIRECTED PRN Saline Lock Insert [OM.PC] Routine Oth 10/19/20 12:07 Ordered EKG 12 Lead [EK] Routine Ther 10/19/20 12:07 Ordered Medication Orders Sodium Chloride (Sodium Chloride 0.9% 10 Ml Syringe) 10 ml FLUSH ASDIRECTED PRN PRN Reason: Keep Vein Open Labs: Laboratory Tests 10/19/20 10/19/20 10/19/20 Range/Units 12:07 12:07 12:07 WBC 7.9 (3.0-10.3) x10-3/uL RBC 4.27 (3.60-5.20) x10(6)uL Hgb 12.0 (11.4-15.5) g/dL Hct 37.3 (34.2-48.2) % MCV 87.4 (76.7-100.5) fL MCH 28.1 (23.9-33.9) pg MCHC 32.1 (31.9-34.8) g/dL RDW 15.4 (12.3-16.5) % Plt Count 404 (151-488) x10(3)uL MPV 7.8 (7.1-12.4) fL Neut % (Auto) 46.4 (30.8-76.2) % Lymph % (Auto) 40.8 (18.4-52.1) % Fleming % (Auto) 7.5 (4.4-15.7) % Eos % (Auto) 4.5 (0.6-8.1) % Baso % (Auto) 0.8 (0.2-1.5) % Neut # (Auto) 3.7 (1.5-6.3) x10-3/uL Lymph # (Auto) 3.2 (1.0-4.4) x10-3/uL Fleming # (Auto) 0.6 (0.3-1.0) x10-3/uL Eos # (Auto) 0.4 (0.0-0.8) x10-3/uL Baso # (Auto) 0.1 (0.0-0.1) x10-3/uL Sodium 140 (135-145) mmol/L Potassium 4.0 (3.5-5.3) mmol/L Chloride 103 (100-110) mmol/L Carbon Dioxide 24 (21-32) mmol/L BUN 20 H (7-18) mg/dL Creatinine 1.0 (0.55-1.02) mg/dL Est Cr Clr Drug Dosing TNP Estimated GFR (MDRD) 54 L (>60) BUN/Creatinine Ratio 20.0 (9-20) Glucose 100 (80-116) mg/dL Calcium 8.7 (8.6-10.2) mg/dL Magnesium 2.1 (1.8-2.5) mg/dL Total Bilirubin 0.4 (0.1-1.3) mg/dL AST 32 H D (5-25) IU/L ALT 31 D (12-36) U/L Alkaline Phosphatase 148 H (56-112) IU/L Troponin I 9.0 (4.0-60.3) pg/mL Total Protein 7.3 (6.0-8.0) g/dL Albumin 3.5 (3.2-4.6) g/dL Globulin 3.8 g/dL Albumin/Globulin Ratio 0.9 Meds: Medications Generic Name Dose Route Start Last Admin Trade Name Freq PRN Reason Stop Dose Admin Sodium Chloride 10 ml 10/19/20 12:07 Sodium Chloride 0.9% 10 Ml Syringe FLUSH ASDIRECTED PRN Keep Vein Open Discontinued Medications Generic Name Dose Route Start Last Admin Trade Name Freq PRN Reason Stop Dose Admin Labetalol HCl 20 mg 10/19/20 12:08 Labetalol 20 Mg/4 Ml Syringe IVPUSH 10/19/20 12:09 NOW STA Protocol Ondansetron HCl 4 mg 10/19/20 12:16 Ondansetron 4 Mg/2 Ml Sdv IVPUSH 10/19/20 12:17 NOW STA Ondansetron HCl 4 mg 10/19/20 12:28 Ondansetron 4 Mg Tab.Dis PO 10/19/20 12:29 NOW STA Departure - Departure Time of Disposition: 13:20 Disposition: Home, Self-Care 01 Condition: Good Clinical Impression: Palpitations, SHANTE (generalized anxiety disorder) Instructions: Palpitations, [id number] Referrals: Stephie Thompson ECHOCARDIOGRAPHER [Primary Care Provider] - Additional Instructions: Please read discharge instructions on palpitations Follow up as needed Sepsis Event Note (ED) - Focused Exam Vital Signs: Vital Signs Temp Pulse Resp BP Pulse Ox 10/19/20 13:08 36.4 C 69 18 179/121 H 100 - My Orders Last 24 Hours: My Active Orders 10/19/20 12:07 Chest 1V Frontal [CR] Stat Sodium Chloride 0.9% [Saline Flush] 10 ml FLUSH ASDIRECTED PRN Saline Lock Insert [OM.PC] Routine EKG 12 Lead [EK] Routine 10/19/20 12:08 EKG Documentation Completion [RC] ASDIRECTED - Assessment/Plan Last 24 Hours: My Active Orders 10/19/20 12:07 Chest 1V Frontal [CR] Stat Sodium Chloride 0.9% [Saline Flush] 10 ml FLUSH ASDIRECTED PRN Saline Lock Insert [OM.PC] Routine EKG 12 Lead [EK] Routine 10/19/20 12:08 EKG Documentation Completion [RC] ASDIRECTED
--- NOTE | 2020-10-19 14:30 | CR ---
INDICATION: Cough. CHEST ONE VIEW: An AP upright portable view of the chest was obtained 10/19/20 and compared with 09/29/11 and 09/06/08. Post median sternotomy change is again noted with the heart appearing normal in size. Overlying EKG leads are noted. A definite active infiltrate or effusion was not identified. IMPRESSION: No acute process. MTDD
== END 2020-10-19 13:30 | disposition home or self-care (01) ==
LOC: FB.ED 11:57
DX: R00.2 Palpitations (principal); F41.1 Generalized anxiety disorder; E78.00 Pure hypercholesterolemia, unspecified; I10 Essential (primary) hypertension; E11.9 Type 2 diabetes mellitus without complications; Z95.5 Presence of coronary angioplasty implant and graft; Z79.84 Long term (current) use of oral hypoglycemic drugs; Z95.1 Presence of aortocoronary bypass graft; Z88.5 Allergy status to narcotic agent; Z91.041 Radiographic dye allergy status
CPT/HCPCS: 36415; 71045; 80053; 83735; 84484; 85025; 93005; 99285-25

== ENCOUNTER 2024-01-20 19:24 | Emergency (ER) | payer MEDICARE ==
[2024-01-20 19:52] LABS: BASOPHILS PERCENT AUTO 0.5 % (0.2-1.5); EOSINOPHILS ABSOLUTE AUTO 0.2 x10-3/uL (0.0-0.8); EOSINOPHILS PERCENT AUTO 1.5 % (0.6-8.1); HEMATOCRIT 39.3 % (34.2-48.2); HEMOGLOBIN 12.7 g/dL (11.4-15.5); LYMPHOCYTES ABSOLUTE AUTO 4.9 x10-3/uL (1.0-4.4); LYMPHOCYTES PERCENT AUTO 48.5 % (18.4-52.1); MEAN CORPUSCULAR HEMOGLOBIN 29.8 pg (23.9-33.9); MEAN CORPUSCULAR HGB CONC 32.4 g/dL (31.9-34.8); MEAN CORPUSCULAR VOLUME 92.1 fL (76.7-100.5); MONOCYTES ABSOLUTE AUTO 0.8 x10-3/uL (0.3-1.0); MONOCYTES PERCENT AUTO 7.4 % (4.4-15.7); NEUTROPHILS ABSOLUTE AUTO 4.3 x10-3/uL (1.5-6.3); NEUTROPHILS PERCENT AUTO 42.1 % (30.8-76.2); PLATELET COUNT,PLT 320 x10(3)uL (151-488); RED BLOOD CELL COUNT 4.26 x10(6)uL (3.60-5.20); WHITE BLOOD CELL COUNT,WBC 10.2 x10-3/uL (3.0-10.3)
[2024-01-20 19:54] LABS: BLOOD UREA NITROGEN,BUN 21 mg/dL (7-18); BUN/CREATININE RATIO 17.5 (9-20); CALCIUM 8.8 mg/dL (8.6-10.2); CARBON DIOXIDE,CO2 24 mmol/L (21-32); CHLORIDE,CL 106 mmol/L (100-110); CREATININE 1.2 mg/dL (0.55-1.02); ESTIMATED GFR 46 mL/min (>60); GLUCOSE RANDOM 91 mg/dL (80-116); POTASSIUM,K 3.8 mmol/L (3.5-5.3); SODIUM,NA 141 mmol/L (135-145)
[2024-01-20 20:00] LABS: A/G RATIO 0.8; ALANINE AMINOTRANSFERASE,ALT 39 U/L (12-36); ALBUMIN 3.3 g/dL (3.2-4.6); ALKALINE PHOSPHATASE 148 IU/L (56-112); ASPARTATE AMNIOTRANSFERASE,AST 38 IU/L (5-25); BILIRUBIN TOTAL 0.3 mg/dL (0.1-1.3); PROTEIN TOTAL,TP 7.4 g/dL (6.0-8.0)
[2024-01-20 20:07] LABS: TROPONIN I 7.5 pg/mL (4.0-60.3)
[2024-01-20] MEDS: LORazepam 2 MG/ML SDV IM STA (20:10)
== END 2024-01-20 21:12 | disposition home or self-care (01) ==
LOC: FB.ED 19:24
DX: F41.0 Panic disorder [episodic paroxysmal anxiety] (principal); R79.89 Other specified abnormal findings of blood chemistry; I10 Essential (primary) hypertension; E78.00 Pure hypercholesterolemia, unspecified; E11.9 Type 2 diabetes mellitus without complications; Z90.49 Acquired absence of other specified parts of digestive tract; Z90.710 Acquired absence of both cervix and uterus; Z95.5 Presence of coronary angioplasty implant and graft; Z95.1 Presence of aortocoronary bypass graft; Z79.82 Long term (current) use of aspirin; Z79.899 Other long term (current) drug therapy; Z88.5 Allergy status to narcotic agent; Z91.041 Radiographic dye allergy status
CPT/HCPCS: 36415; 71045; 80053; 83880; 84484; 85025; 93005; 96372; 99284; J2060; 93010

== ENCOUNTER 2024-06-01 11:23 | Emergency (ER) | payer MEDICARE ==
[2024-06-01] MEDS: Sodium Chloride 0.9% 10 ML Syringe FLUSH PRN (11:40)
[2024-06-01] MEDS: Nitroglycerin 0.4 MG Tab.SL SL PRN (11:58)
[2024-06-01 12:00] LABS: BASOPHILS PERCENT AUTO 0.5 % (0.2-1.5); EOSINOPHILS ABSOLUTE AUTO 0.1 x10-3/uL (0.0-0.8); EOSINOPHILS PERCENT AUTO 1.7 % (0.6-8.1); HEMATOCRIT 36.4 % (34.2-48.2); HEMOGLOBIN 11.7 g/dL (11.4-15.5); LYMPHOCYTES ABSOLUTE AUTO 2.9 x10-3/uL (1.0-4.4); MEAN CORPUSCULAR HEMOGLOBIN 26.8 pg (23.9-33.9); MEAN CORPUSCULAR HGB CONC 32.2 g/dL (31.9-34.8); MEAN CORPUSCULAR VOLUME 83.3 fL (76.7-100.5); MONOCYTES ABSOLUTE AUTO 0.6 x10-3/uL (0.3-1.0); MONOCYTES PERCENT AUTO 7.7 % (4.4-15.7); NEUTROPHILS ABSOLUTE AUTO 4.2 x10-3/uL (1.5-6.3); NEUTROPHILS PERCENT AUTO 53.1 % (30.8-76.2); PLATELET COUNT,PLT 335 x10(3)uL (151-488); RED BLOOD CELL COUNT 4.38 x10(6)uL (3.60-5.20); RED CELL DISTRIBUTION WIDTH 16.4 % (12.3-16.5); WHITE BLOOD CELL COUNT,WBC 7.8 x10-3/uL (3.0-10.3)
[2024-06-01 12:01] LABS: BLOOD UREA NITROGEN,BUN 14 mg/dL (7-18); BUN/CREATININE RATIO 17.5 (9-20); CALCIUM 8.5 mg/dL (8.6-10.2); CARBON DIOXIDE,CO2 23 mmol/L (21-32); CHLORIDE,CL 108 mmol/L (100-110); CREATININE 0.8 mg/dL (0.55-1.02); EST CRCL DRUG DOSING (CG) 41.63 mL/min; ESTIMATED GFR 75 mL/min (>60); GLUCOSE RANDOM 97 mg/dL (80-116); POTASSIUM,K 4.5 mmol/L (3.5-5.3); SODIUM,NA 141 mmol/L (135-145)
[2024-06-01] MEDS: Aspirin 81 MG Tab.Chew PO ONE (12:03)
[2024-06-01] MEDS: fentaNYL 100 MCG/2 ML SDV IVPUSH PRN (12:06)
[2024-06-01 12:07] LABS: ALANINE AMINOTRANSFERASE,ALT 45 U/L (12-36); ALBUMIN 3.5 g/dL (3.2-4.6); ALKALINE PHOSPHATASE 151 IU/L (56-112); ASPARTATE AMNIOTRANSFERASE,AST 39 IU/L (5-25); BILIRUBIN TOTAL 0.3 mg/dL (0.1-1.3); PROTEIN TOTAL,TP 7.2 g/dL (6.0-8.0)
[2024-06-01 12:11] LABS: TROPONIN I 4.5 pg/mL (4.0-60.3)
[2024-06-01 12:13] LABS: D-DIMER QUANTITATIVE 0.84 mg/LFEU (0.0-0.59)
[2024-06-01 12:16] LABS: PROTHROMBIN TIME 10.4 sec (9.0-11.1)
== END 2024-06-01 14:42 | disposition home or self-care (01) ==
LOC: FB.ED 11:23
DX: I25.10 Atherosclerotic heart disease of native coronary artery without angina pectoris (principal); R06.9 Unspecified abnormalities of breathing; I48.91 Unspecified atrial fibrillation; I10 Essential (primary) hypertension; E78.00 Pure hypercholesterolemia, unspecified; E11.9 Type 2 diabetes mellitus without complications; Z95.5 Presence of coronary angioplasty implant and graft; Z90.49 Acquired absence of other specified parts of digestive tract; Z90.710 Acquired absence of both cervix and uterus; Z88.5 Allergy status to narcotic agent; Z91.041 Radiographic dye allergy status; Z79.01 Long term (current) use of anticoagulants; Z79.82 Long term (current) use of aspirin; Z79.899 Other long term (current) drug therapy
CPT/HCPCS: 36415; 71045; 80053; 83690; 83880; 84484; 85025; 85379; 85610; 85730; 93005; 96374; 99285-25; A9270-GY; J3010; J3490